=== PATIENT | male | born 1995 | race Caucasian/White ===

== ENCOUNTER 2017-10-17 17:04 | Emergency (ER) | payer OTHER | END 2017-10-17 18:57 | disposition left against medical advice (07) | LOC: UCCORT 17:04 | DX: M54.9 Dorsalgia, unspecified (principal); M62.81 Muscle weakness (generalized); Z53.21 Procedure and treatment not carried out due to patient leaving prior to being seen by health care provider ==

== ENCOUNTER 2017-10-20 15:54 | Emergency (ER) | payer OTHER ==
[2017-10-20 18:06] VITALS: BP 148/91
--- NOTE | 2017-10-20 18:18 | UC ---
Back Pain HPI - HPI Summary HPI Summary: 21 yo male with waxing and waning LBP for >month now with right calf pain x 1 week worse with ambulation no hx CA no trauma no bowel or bladder dysfunction - History of Current Complaint Chief Complaint: UCGeneralIllness Stated Complaint: BACK AND LEG PAIN WHEN WALKING Time Seen by Provider: 10/20/17 18:05 Hx Obtained From: Patient Onset/Duration: Gradual Onset, Lasting Weeks Timing: Constant Severity Initially: Mild Severity Currently: Mild Pain Intensity: 4 Pain Scale Used: 0-10 Numeric Character: Aching, Throbbing Aggravating Factor(s): Movement, Walking Alleviating Factor(s): Rest Associated Signs And Symptoms: Positive: Pain with Weight Bearing - Allergies/Home Medications Allergies/Adverse Reactions: Allergies Allergy/AdvReac Type Severity Reaction Status Date / Time No Known Allergies Allergy Verified 10/20/17 18:04 Home Medications: Home Medications Acetaminophen TAB* [Tylenol TAB*] 650 mg PO Q4H PRN 10/20/17 [History Confirmed 10/20/17] PMH/Surg Hx/FS Hx/Imm Hx Previously Healthy: Yes - Surgical History Surgical History: None - Family History Known Family History: Negative: Cardiac Disease, Hypertension, Diabetes - Social History Alcohol Use: None Substance Use Type: None Smoking Status (MU): Never Smoked Tobacco Review of Systems Constitutional: Negative Skin: Negative Eyes: Negative ENT: Negative Respiratory: Negative Cardiovascular: Negative Gastrointestinal: Negative Genitourinary: Negative Motor: Negative Neurovascular: Negative Musculoskeletal: Arthralgia, Myalgia Neurological: Negative Psychological: Negative Is Patient Immunocompromised?: No All Other Systems Reviewed And Are Negative: Yes Physical Exam Triage Information Reviewed: Yes Appearance: Well-Appearing, No Pain Distress, Well-Nourished Vital Signs: Initial Vital Signs Temp 99.3 F 10/20/17 18:00 Pulse 85 10/20/17 18:00 Resp 16 10/20/17 18:00 BP 148/91 10/20/17 18:00 Pulse Ox 100 10/20/17 18:00 Vital Signs Reviewed: Yes Eyes: Positive: Conjunctiva Clear ENT: Positive: Hearing grossly normal. Negative: Nasal congestion, Nasal drainage, Muffled voice, Hoarse voice Neck: Positive: Supple, Nontender, No Lymphadenopathy Respiratory: Positive: Lungs clear, Normal breath sounds, No respiratory distress Cardiovascular: Positive: RRR, No Murmur, Pulses Normal Musculoskeletal: Positive: ROM Intact, No Edema Psychological Exam: Normal Skin Exam: Normal Diagnostics - Radiology No standard instances Xray Interpretation: Positive (See Comments) - straightening of lumbar spine Radiology Interpretation Completed By: Radiologist Back Pain Course/Dx - Differential Dx/Diagnosis Provider Diagnoses: acute lumbar strain Discharge - Discharge Plan Condition: Stable Disposition: HOME Patient Education Materials: Low Back Strain (ED) Referrals: [facility] [Outside] (ask for a gumi appt) Additional Instructions: advil 3 pills 4x day with food I suggest you see Sportsmedicine specialist Let them know we referred you Images Front/Back of Body, Lg ([place]): 1 - pain here 2 - pain here
--- NOTE | 2017-10-20 18:46 | RAD ---
HISTORY: Back pain, calf pain COMPARISONS: None VIEWS: 5 , Frontal, lateral, coned-down lateral sacral, and bilateral oblique views of the lumbar spine. FINDINGS: ALIGNMENT: There is straightening of the normal lumbar lordosis. VERTEBRAL BODIES: The vertebral body heights are normal. The interpedicular distances are normal. JOINTS: The facet joints are normal. INTERVERTEBRAL DISCS: There is mild diffuse loss of intervertebral disc height. SOFT TISSUE: Unremarkable. OTHER: The pelvis is unremarkable. The lung bases are clear. IMPRESSION: STRAIGHTENING OF THE LUMBAR LORDOSIS. MILD DEGENERATIVE DISC DISEASE.
== END 2017-10-20 19:00 | disposition home or self-care (01) ==
LOC: UCCORT 15:54
DX: S39.012A Strain of muscle, fascia and tendon of lower back, initial encounter (principal); X58.XXXA Exposure to other specified factors, initial encounter; Y93.9 Activity, unspecified; Y92.9 Unspecified place or not applicable
CPT/HCPCS: 72110; 99211; G0463

== ENCOUNTER 2019-07-29 15:45 | Emergency (ER) | payer OTHER ==
--- OUTSIDE RECORDS SUMMARY | 2019-07-29 17:58 | XMS REPORT | Continuity of Care Document ---
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 Problems Description No Information Available Social History Type Date Description Comments Sex Unknown Tobacco Use Start: Unknown Patient has never smoked Allergies, Adverse Reactions, Alerts Description No Known Drug Allergies Medications Active Medications SIG Qnty Indications Ordering Provider Date Fluticasone Propionate Unknown 50mcg/Act Suspension Cetirizine HCL Unknown 10mg Tablets Immunizations Description No Information Available Vital Signs Date Vital Result Comment 06/11/2019 3:51pm BP Systolic 142 mmHg BP Diastolic 70 mmHg Height 72 inches 6'0" Weight 262.00 lb BMI (Body Mass Index) 35.5 kg/m2 Heart Rate 79 /min O2 % BldC Oximetry 98 % Results Description No Information Available Procedures Description No Information Available Medical Devices Description No Information Available Encounters Description No Information Available Assessments Description No Information Available Plan of Treatment No Information Available Functional Status Description No Information Available Mental Status Description No Information Available Referrals Description No Information Available
--- OUTSIDE RECORDS SUMMARY | 2019-07-29 17:58 | XMS REPORT | Continuity of Care Document ---
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 Problems Active Problems Provider Date Allergic rhinitis due to pollen MALIK Jaimes Onset: 2018 Allergic rhinitis MALIK Jaimes Onset: 06/11/2019 Bilateral chronic serous otitis MALIK Jaimes Onset: 2018 Social History Type Date Description Comments Sex Unknown Tobacco Use Start: Unknown Patient has never smoked Smoking Status Reviewed: 07/05/19 Patient has never smoked Allergies, Adverse Reactions, Alerts Description No Known Drug Allergies Medications Active Medications SIG Qnty Indications Ordering Provider Date Prednisone 6 tablets (30 36tabs J30.1 Zhou Ott 07/05/2019 5mg Tablets mg) by mouth MD Mario twice a day x 3 days Fluticasone Propionate spray 2 sprays 16gm J30.1 Zhou Ott 06/11/2019 in each nostril MD Mario 50mcg/Act Suspension bid x2 weeks and then decrease to 2 sprays each nostril daily Levocetirizine take one tablet 30tabs J30.1 Zhou Ott 06/11/2019 Dihydrochloride by mouth daily MD Mario 5mg at bedtime Tablets Immunizations Description No Information Available Vital Signs Date Vital Result Comment 07/05/2019 8:31am BP Systolic 128 mmHg BP Diastolic 78 mmHg Height 72 inches 6'0" Weight 262.00 lb BMI (Body Mass Index) 35.5 kg/m2 Heart Rate 78 /min Respiratory Rate 18 /min O2 % BldC Oximetry 98 % 06/11/2019 3:51pm BP Systolic 142 mmHg BP Diastolic 70 mmHg Height 72 inches 6'0" Weight 262.00 lb BMI (Body Mass Index) 35.5 kg/m2 Heart Rate 79 /min O2 % BldC Oximetry 98 % Results Test Acquired Date Facility Test Result H/L Range Note Total IgE 06/11/2019 [facility] .Total IgE <pending> [address] [place] [address] [phone] Procedures Date Code Description Status 06/11/2019 62360 Allergy Tests Percutaneous W/ Allergenic Extracts Completed Medical Devices Description No Information Available Encounters Type Date Location Provider Dx Diagnosis Office Visit 06/11/2019 [facility] J30.1 Allergic rhinitis due 4:00p Fenstermacheyodit RPA-[facility] to pollen J30.89 Other allergic rhinitis H65.23 Chronic serous otitis media, bilateral Assessments Date Code Description Provider 07/05/2019 J30.1 Allergic rhinitis due to pollen Zhou Martin MD 07/05/2019 J30.89 Other allergic rhinitis Zhou Martin MD 06/11/2019 J30.1 Allergic rhinitis due to pollen Eun SBryan Fenstermacher, RPA -[facility] 06/11/2019 J30.89 Other allergic rhinitis [place] Fenstermacher RPA-[facility] 06/11/2019 H65.23 Chronic serous otitis media, Euncedric Beckstermacher, RPA-C bilateral Plan of Treatment Future Appointment(s):01/03/2020 9:00 am - Shira Osorio NP at [id number] - Zhou Martin MDJ30.1 Allergic rhinitis due to pollenNew Medication:Prednisone 5 mg - 6 tablets (30 mg) by mouth twice a day x 3 daysJ30.89 Other allergic rhinitis Functional Status Description No Information Available Mental Status Description No Information Available Referrals Description No Information Available
--- OUTSIDE RECORDS SUMMARY | 2019-07-29 17:58 | XMS REPORT | Continuity of Care Document ---
:1995 External Reference #:[id number] Author Name MALIK Jaimes (transmitted by agent of provider Zhou Martin) Address [address] [place] [address] Care Team Providers Name Role Phone Tiffanie Ingram NP Care Team Information Claim Adjuster Unavailable Problems Active Problems Provider Date Bilateral chronic serous otitis MALIK Jaimes Onset: 2018 Allergic rhinitis MALIK Jaimes Onset: 06/11/2019 Allergic rhinitis due to pollen MALIK Jaimes Onset: 2018 Social History Type Date Description Comments Sex Unknown Tobacco Use Start: Unknown Patient has never smoked Smoking Status Reviewed: 06/11/19 Patient has never smoked Allergies, Adverse Reactions, Alerts Description No Known Drug Allergies Medications Active Medications SIG Qnty Indications Ordering Provider Date Fluticasone Propionate spray 2 sprays 16gm J30.1 Zhou Ott 06/11/2019 in each nostril MD Mario 50mcg/Act Suspension bid x2 weeks and then decrease to 2 sprays each nostril daily Levocetirizine take one tablet 30tabs J30.1 Christopher A. 06/11/2019 Dihydrochloride by mouth daily MD Mario 5mg at bedtime Tablets Immunizations Description No Information Available Vital Signs Date Vital Result Comment 06/11/2019 3:51pm BP Systolic 142 mmHg BP Diastolic 70 mmHg Height 72 inches 6'0" Weight 262.00 lb BMI (Body Mass Index) 35.5 kg/m2 Heart Rate 79 /min O2 % BldC Oximetry 98 % Results Test Date Facility Test Result H/L Range Note Total IgE 06/11/2019 [facility] .Total IgE <pending> [address] [place] [place] [address] [phone] Order 06/11/2019 [facility] Skin Test Seasonal < pending> and Environmental Procedures Date Code Description Status 06/11/2019 90033 Allergy Tests Percutaneous W/ Allergenic Extracts Completed Medical Devices Description No Information Available Encounters Type Date Location Provider Dx Diagnosis Office Visit 06/11/2019 [facility] [place] J30.1 Allergic rhinitis due 4:00p FenstermCONRADO sapp-C to pollen J30.89 Other allergic rhinitis H65.23 Chronic serous otitis media, bilateral Assessments Date Code Description Provider 06/11/2019 J30.1 Allergic rhinitis due to pollen Eun Pratt RPA -C 06/11/2019 J30.89 Other allergic rhinitis Eun Pratt RPA-C 06/11/2019 H65.23 Chronic serous otitis media, Eun Shahermsenait RPA-Lilo bilateral Plan of Treatment 06/11/2019 - JAM JaimesCJ30.1 Allergic rhinitis due to pollenNew Medication:Fluticasone Propionate 50 mcg/Act - spray 2 sprays in each nostril bid x2 weeks and then decrease to2 sprays each nostril dailyLevocetirizine Dihydrochloride 5 mg - take one tablet by mouth daily at bedtimeComments:Patient with sinus congestion, sinus headaches and chronic serous otitis media. I will screen for common seasonal and environmental allergies. I will check a total IgE level. I have advised Dirk to increase Fluticasone to 2 sprays twice a day x2 weeks and then return to 2 sprays daily. I will give Levocetirizine for breakthrough symptoms. If serous otitis doesn't improve, consider ENT evaluation.Follow up:2 weeks.J30.89 Other allergic [id number] Chronic serous otitis media, bilateral Functional Status Description No Information Available Mental Status Description No Information Available Referrals Description No Information Available
[2019-07-29 18:14] VITALS: BP 142/75
--- NOTE | 2019-07-29 18:36 | UC ---
Throat Pain/Nasal Jose C HPI - HPI Summary HPI Summary: 23 yo male has had sinus pressure/pain/nasal congestion/post nasal drip x 4-6 weeks Initially flonase was helpful but now with constant holocranial headache radiating to occiput 3-5 /10 currently a 3/10 nausea but no vomiting no stiff neck no fever - History of Current Complaint Chief Complaint: UCRespiratory Stated Complaint: HEADACHE,NAUSEA,BODY ACHES Time Seen by Provider: 07/29/19 18:12 Hx Obtained From: Patient Onset/Duration: Gradual Onset, Lasting Weeks Severity: Mild Pain Intensity: 3 Pain Scale Used: 0-10 Numeric Cough: None Associated Signs & Symptoms: Positive: Sinus Discomfort, Nasal Discharge. Negative: Dysphagia, FB Sensation, Drooling, Wheezing, Hoarseness, Fever, Vomiting, Rash Related History: Seasonal Allergies - Epiglottits Risk Factors Epiglottis Risk Factors: Negative - Allergies/Home Medications Allergies/Adverse Reactions: Allergies Allergy/AdvReac Type Severity Reaction Status Date / Time No Known Allergies Allergy Verified 07/29/19 18:10 Home Medications: Home Medications Fluticasone NASAL SPRAY 50MCG* [Flonase NASAL SPRAY 50MCG*] 1 spray BID [History Confirmed 07/29/19] PMH/Surg Hx/FS Hx/Imm Hx Previously Healthy: Yes - Surgical History Surgical History: None - Family History Known Family History: Negative: Cardiac Disease, Hypertension, Diabetes - Social History Alcohol Use: Rare Substance Use Type: None Smoking Status (MU): Never Smoked Tobacco Review of Systems All Other Systems Reviewed And Are Negative: Yes Constitutional: Positive: Negative Skin: Positive: Negative Eyes: Positive: Negative ENT: Positive: Nasal Discharge, Sinus Congestion, Sinus Pain/Tenderness Respiratory: Positive: Negative Cardiovascular: Positive: Negative Gastrointestinal: Positive: Nausea Motor: Positive: Negative Neurovascular: Positive: Negative Musculoskeletal: Positive: Negative Neurological: Positive: Headache Psychological: Positive: Negative Physical Exam Triage Information Reviewed: Yes Appearance: Well-Appearing, No Pain Distress, Well-Nourished Vital Signs: Initial Vital Signs Temp 98.1 F 07/29/19 18:11 Pulse 74 07/29/19 18:11 Resp 16 07/29/19 18:11 BP 142/75 07/29/19 18:11 Pulse Ox 100 07/29/19 18:11 Vital Signs Reviewed: Yes Eyes: Positive: Conjunctiva Clear, Other: - eomi/perrl ENT: Positive: Hearing grossly normal, Nasal congestion, Nasal drainage, TMs normal, Sinus tenderness, Uvula midline. Negative: Tonsillar swelling, Tonsillar exudate, Trismus, Muffled voice, Hoarse voice Dental Exam: Normal Neck: Positive: Supple, Nontender, No Lymphadenopathy Respiratory: Positive: Lungs clear, Normal breath sounds, No respiratory distress, No accessory muscle use Cardiovascular: Positive: RRR, No Murmur Abdomen Description: Positive: Nontender, No Organomegaly. Negative: CVA Tenderness (R), CVA Tenderness (L) Bowel Sounds: Positive: Present Musculoskeletal: Positive: ROM Intact, No Edema Neurological: Positive: Alert Psychological Exam: Normal Skin Exam: Normal Throat Pain/Nasal Course/Dx - Differential Dx/Diagnosis Provider Diagnosis: Acute sinusitis, Elevated BP without diagnosis of hypertension Discharge ED - Sign-Out/Discharge Documenting (check all that apply): Patient Departure All imaging exams completed and their final reports reviewed: No Studies - Discharge Plan Condition: Stable Disposition: HOME Prescriptions: Amoxicillin PO (*) [Amoxicillin 875 MG (*)] 875 mg PO BID #14 tab Patient Education Materials: Sinusitis (ED) Referrals: [facility] [Outside] - If Needed Additional Instructions: continue flonase you can use saline nasal spray about 5 minute before using the flonase recheck later this week if not better you BP was a bit elevated I suggest you get it rechecked in 2-20 weeks - Billing Disposition and Condition Condition: STABLE Disposition: Home
== END 2019-07-29 18:33 | disposition home or self-care (01) ==
LOC: UCCORT 15:45
DX: J01.90 Acute sinusitis, unspecified (principal); R03.0 Elevated blood-pressure reading, without diagnosis of hypertension; R11.0 Nausea
CPT/HCPCS: 99212; G0463